=== PATIENT | male | born 1975 | race Caucasian/White ===

== ENCOUNTER 2018-02-06 10:17 | Outpatient (CLI) | payer OTHER ==
--- NOTE | 2018-02-06 15:43 | Diagnostic Imaging Report ---
Indication: Cough Technique: 2 views of the chest Comparison: None Findings: Lungs and pleural spaces are clear. The heart size is normal. The bones are unremarkable. No significant interim change. Impression: Negative
== END 2018-02-06 12:17 | disposition home or self-care (01) ==
LOC: RAD 10:17
DX: R10.10 Upper abdominal pain, unspecified (principal)
CPT/HCPCS: 71046

== ENCOUNTER 2019-03-03 18:04 | Emergency (ER) | payer BC, OTHER ==
[~2019-03-03] VITALS: Ht 157.5 cm; Wt 59.0 kg
[2019-03-03 18:17] VITALS: BP 137/85
--- NOTE | 2019-03-03 18:22 | NUR ---
ED Nurse Note: Patient walked in to ER as reporting fall incident 1 hour ago. per pt, he fell from about 2-3 feet height of ladder. he landed on Rt side of body which causing Rt back pain. pt aao x4 and calm and cooperative. skin clean and intact. no open wound noted on Rt back.
[2019-03-03] MEDS ORDERED: HYDROcodone/Acetamin 7.5/325 tab ORAL ONE (18:30)
--- NOTE | 2019-03-03 18:54 | Emergency Room Report ---
History of Present Illness General Chief Complaint: Multiple Trauma/Fall Source: Patient Present Illness HPI 43-year-old male presents to the emergency department complaining of 8 out of 10 in severity lower posterior right sided rib cage pain status post mechanical fall from ladder just prior to arrival. Patient reports that he was standing on a 3 foot ladder and fell. Patient states that he fell onto the ladder and struck the right posterior side. Denies hitting his head or having a loss of consciousness he denies midline neck or back pain. He reports pain is exacerbated upon palpation or taking deep breaths. He denies significant past medical history other than asthma. Denies hemoptysis. Pt. reports some mild right wrist pain 3/10 in severity, denies swelling, deformity, or weakness. pt. denies paresthesias, urinary or bowel incontinence, denies saddle anesthesia. Allergies: Coded Allergies: No Known Allergies (Unverified , 03/03/19) Patient History Past Medical History: see triage record Past Surgical History: none Pertinent Family History: none Reviewed Nursing Documentation: PMH: Agreed; PSxH: Agreed Nursing Documentation-PMH Past Medical History: No History, Except For Hx Asthma: Yes History Of Psychiatric Problem: Yes - Depression Review of Systems All Other Systems: negative except mentioned in HPI Physical Exam Vital Signs Date Time Temp Pulse Resp B/P (MAP) Pulse Ox O2 Delivery O2 Flow Rate FiO2 03/03/19 18:08 98.4 79 20 137/85 97 Room Air Sp02 EP Interpretation: reviewed, normal General Appearance: no apparent distress, alert, GCS 15, non-toxic, mild distress Head: normocephalic, atraumatic Eyes: bilateral eye normal inspection, bilateral eye PERRL ENT: hearing grossly normal, normal voice Neck: full range of motion, no bony tend, tender lateral - mild on the right Respiratory: lungs clear, normal breath sounds, no respiratory distress, no accessory muscle use, no wheezing, speaking full sentences, other - TTP to the right lower posterior ribs. no flail chest. Cardiovascular #1: regular rate, rhythm, no edema Gastrointestinal: non tender, soft Musculoskeletal: back normal, gait/station normal, normal range of motion, tender - ttp to the dorsum of the right wrist, FROM, no swelling or obvious deformity, no snuff box tenderness Neurologic: alert, oriented x3, responsive, motor strength/tone normal, sensory intact, speech normal, grossly normal Psychiatric: judgement/insight normal Skin: normal color, no rash, warm/dry, well hydrated Medical Decision Making PA Attestation Dr. colon is my supervising Physician whom patient management has been discussed with. Diagnostic Impression: Primary Impression: Contusion of ribs Qualified Codes: S20.211A - Contusion of right front wall of thorax, initial encounter Additional Impressions: Contusion of rib on right side Qualified Codes: S20.211A - Contusion of right front wall of thorax, initial encounter Right wrist sprain Qualified Codes: S63.501A - Unspecified sprain of right wrist, initial encounter Muscle strain ER Course 43-year-old male presents to the emergency department complaining of 8 out of 10 in severity lower posterior right sided rib cage pain status post mechanical fall from ladder just prior to arrival. Patient reports that he was standing on a 3 foot ladder and fell. Patient states that he fell onto the ladder and struck the right posterior side. Denies hitting his head or having a loss of consciousness he denies midline neck or back pain. He reports pain is exacerbated upon palpation or taking deep breaths. He denies significant past medical history other than asthma. Denies hemoptysis. Pt. reports some mild right wrist pain 3/10 in severity, denies swelling, deformity, or weakness. pt. denies paresthesias, urinary or bowel incontinence, denies saddle anesthesia. Ddx considered but are not limited to Fracture, dislocation, contusion, Sprain/ Strain/Spasm, rib fractures, spinal chord injury just to name a few. Vital signs: are WNL, pt. is afebrile H&PE are most consistent with musculoskeletal injury will perform imaging to r/ o fractures/dislocations. ORDERS: - X-ray - negative for fx, Dislocation, or significant soft tissue injury, per preliminary read in ED, and signed by BYRANT Roque, my supervising physician has reviewed, and agrees with my interpretation. ED INTERVENTIONS: - [place] PO for pain. Pt. declined wrist splint or katie wrap. -I do not identify an emergent condition at this time. With current presentation , pt. is stable for close outpatient follow up and conservative treatment. D/ w pt. to return promptly to ED with worsening or new symptoms.- Pt. verbalizes' understanding and agreement with proposed treatment plan.proposed treatment plan. DISCHARGE: At this time pt. is stable for d/c to home. Will provide printed patient care instructions, and any necessary prescriptions. Care plan and follow up instructions have been discussed with the patient prior to discharge. Other X-Ray Diagnostic Results Other X-Ray Diagnostic Results : X-Ray ordered: Right Rib series wtih PA view # of Views/Limited Vs Complete: 4 View Indication: Pain EP Interpretation: Yes PA Xray: Interpretation reviewed, by supervising MD, and agrees with findings. Interpretation: no dislocation, no soft tissue swelling, no fractures, nonspecific bowel gas Impression: No acute disease Electronically Signed by: Carolyne Roque PA-C Last Vital Signs Date Time Temp Pulse Resp B/P (MAP) Pulse Ox O2 Delivery O2 Flow Rate FiO2 03/03/19 18:17 79 20 Room Air 03/03/19 18:17 98.4 137/85 97 Disposition: HOME, SELF-CARE Condition: Stable Scripts Methocarbamol* (ROBAXIN-750*) 750 Mg Tablet 750 MG PO TID, #21 TAB 0 Refills Prov: Carolyne Roque 03/03/19 Ibuprofen* (MOTRIN*) 600 Mg Tablet 600 MG ORAL THREE TIMES A DAY, #30 TAB 0 Refills Prov: Carolyne Roque 03/03/19 Hydrocodone Bit/Acetaminophen 7.5-325* (NORCO 7.5-325*) 1 Each Tablet 1 TAB ORAL Q6H PRN for For Pain, #16 TAB 0 Refills Prov: Carolyne Roque 03/03/19 Patient Instructions: Rib Contusion, Wrist Sprain Additional Instructions: Take medications as directed. Follow up with a Primary Care Provider in 3-5 days, even if your symptoms have resolved. --Please review list of primary care clinics, if you do not already have a primary care provider Return sooner to ED if new symptoms occur, or current symptoms become worse. Do not drink alcohol, drive, or operate heavy machinery while taking [place] as this may cause drowsiness. - Please note that this Emergency Department Report was dictated using [employer] shop supervisor technology software, occasionally this can lead to erroneous entry secondary to interpretation by the dictation equipment. Carolyne Roque March 03, 2019 18:54
--- NOTE | 2019-03-03 19:09 | NUR ---
HAND-OFF: Report given to HARITHA Ureña. no orders to carry at this moment.
--- NOTE | 2019-03-03 19:10 | NUR ---
ED Nurse Note: Received report from Shahram Cancino/HARITHA. Pt is A/O X4. Will continue to monitor.
[2019-03-03] MEDS ORDERED: IBUPROFEN600 MG ORAL (19:55)
[2019-03-03] MEDS ORDERED: NORCO 7.5-3251 EACH ORAL (19:55)
[2019-03-03] MEDS ORDERED: ROBAXIN-750750 MG PO (19:55)
[2019-03-03 20:05] VITALS: BP 131/80
--- NOTE | 2019-03-03 20:05 | NUR ---
ER DISCHARGE NOTE: Patient is cleared to be discharged per Carolyne Roque/ BRYANT. Pt is aox4 on room air with stable vital signs. Pt was given D/C and prescription instructions and was able to verbalize understanding. Pt's ID band removed. Pt is able to ambulate with steady gait and took all belongings. Accompanied by his friend.
--- NOTE | 2019-03-04 11:00 | Diagnostic Imaging Report ---
Indication: Trauma and chest pain. Comparison: None Findings: 4 views of the right chest wall was obtained for evaluation of the ribs. Bony mineralization appears normal. There is no acute fracture identified. There is no soft tissue swelling demonstrated. The lung is essentially clear. The costophrenic angle is sharp. Other osseous structures visualized are unremarkable. Impression: Negative unilateral rib series
== END 2019-03-03 20:05 | disposition home or self-care (01) ==
LOC: EMR 18:30
DX: S20.211A Contusion of right front wall of thorax, initial encounter (principal); S63.501A Unspecified sprain of right wrist, initial encounter; W11.XXXA Fall on and from ladder, initial encounter; Y92.9 Unspecified place or not applicable; J45.909 Unspecified asthma, uncomplicated; F32.9 Major depressive disorder, single episode, unspecified
CPT/HCPCS: 99283